=== PATIENT | female | born 1965 | race Caucasian/White ===

== ENCOUNTER 2022-07-12 08:41 | Day surgery (SDC) | payer OTHER, SELFPAY ==
[2022-07-10 13:58] VITALS: BMI 32.0
[2022-07-12 09:28] VITALS: BP 121/84; PULSE 80; RESP 18; TEMP 36.2; O2SAT 98
[2022-07-12 09:32] LABS: OR HCG Qualitative Urine Negative (Negative)
[2022-07-12] MEDS: sodium chloride 0.9% 1,000 ML 30 ML IV (09:34)
--- NOTE | 2022-07-12 09:45 | W.PM.OPSFHP ---
Same Day Surgery H&P Indication for Procedure/HPI DATE OF PROCEDURE: July 12, 2022 CHIEF COMPLAINT/INDICATIONFOR SURGICAL PROCEDURE: Change in bowel habit PREOP DIAGNOSIS: Change in bowel habits PLANNED PROCEDURE: Operation Date: 07/12/22 10:30 Proposed Procedures p Colonoscopy 33122,R19.4(Not Applicable) - Modesto Mccarthy MD 05/02/2022 This is a pleasant 56 years old female patient well-known to me prior to 4 years as I did perform gallbladder surgery and a colonoscopy afterwards that showed at that time diverticulosis.? Patient reports that recently he has started to have alternating bowel habits between diarrhea and constipation.? Denies any bleeding per rectum or history of colon cancer. 07/12/2022 Patient comes today for planned colonoscopy due to change in bowel habits ROS All systems have been reviewed negative except as for the above or per problem list. Medications/Allergies* Home Medications Medication Instructions Recorded Confirmed Type multivitamin (Daily Multi-Vitamin) 1 tab PO DAILY 05/02/22 07/10/22 History ibuprofen 400 mg tablet 400 mg PO Q6H PRN Pain 07/12/22 07/12/22 History Allergies/Adverse Reactions Allergy/AdvReac Type Severity Reaction Status Date / Time tomato Allergy Mild ALGY-Swell Verified 05/05/22 08:42 Lip/Tongue/Throat Penicillins Allergy ALGY-Rash Verified 05/05/22 08:42 Current Medications: Generic Name Dose Route Start Last Admin Trade Name Freq PRN Reason Stop Dose Admin Sodium Chloride 1,000 mls @ 30 mls/hr 07/12/22 07:45 07/12/22 09:34 Sodium Chloride 0.9% IV 30 mls/hr .Q24H COLLIN Administration Pertinent History/Comorbid Conditions* Family History (Updated 05/02/22 @ 09:57 by Bebe Landeros LPN) Chronic kidney disease (CKD) Mother Lung disease Mother Father Hypertension Father Denies family history of Diabetes Dementia Cancer Stroke Social History Smoking and tobacco status: former smoker Pertinent Exam Findings alert, oriented x 3, regular rate & rhythm and procedure specific exam findings (Abdominal exam nontender nondistended soft) Recommendations Surgery/Procedure today (Colonoscopy with possible biopsy) Coding Level of Care Code Acute Bilingual Hr Generalist for Dwight Gonzales
[2022-07-12 11:05] VITALS: BP 118/78; PULSE 97; RESP 18; TEMP 36.2; O2SAT 96
[2022-07-12 11:16] VITALS: BP 116/77; PULSE 76; RESP 16; O2SAT 99
--- NOTE | 2022-07-12 13:30 | ANES.PREANE2 ---
Pre-Anesthetic Assessment Height/Weight: Height 1.57 m Weight 79.379 kg Temp Pulse Resp BP Pulse Ox O2 Del Method 97.1 F L 76 16 116/77 99 07/12/22 11:05 07/12/22 11:16 07/12/22 11:16 07/12/22 11:16 07/12/22 11:16 07/12/22 11:16 Preop Diagnosis: Change in bowel habits Operation Date: 07/12/22 10:30 Proposed Procedures p Colonoscopy 77100,R19.4(Not Applicable) - Modesto Mccarthy MD Familial anesthetic complications: none Was Beta Eric taken within 24 hours: N/A Was Clonidine taken within 24 hours: N/A Last intake: Intake Last Liquid Date 07/11/22 Last Liquid Time 19:00 Last Solid Date 07/10/22 Last Solid Time 19:00 Social No alcohol and No tobacco Exam alert, oriented x 3, clear to auscultation bilaterally and regular rate & rhythm Airway Submandibular: within normal limits Cervical ROM: within normal limits Mallampati: Class II GI diverticular dz Anesthetic Plan ASA status: 2 Anesthesia: MAC Medications/Allergies Home Medications Medication Instructions Recorded Confirmed Last Taken Type mupirocin 2 % topical ointment 1 applic topical BID #15 grams 09/08/20 07/10/22 07/11/22 Rx sulfamethoxazole 800 1 tab PO BID 7 days #14 tabs 09/08/20 07/10/22 07/11/22 Rx mg-trimethoprim 160 mg tablet (Bactrim DS) multivitamin (Daily Multi-Vitamin) 1 tab PO DAILY 05/02/22 07/10/22 07/11/22 History ibuprofen 400 mg tablet 400 mg PO Q6H PRN Pain 07/12/22 07/12/22 06/28/22 History Allergies Allergy/AdvReac Type Severity Reaction Status Date / Time tomato Allergy Mild ALGY-Swell Verified 05/05/22 08:42 Lip/Tongue/Throat Penicillins Allergy ALGY-Rash Verified 05/05/22 08:42 PFSH Anesthesia Family History Mother Chronic kidney disease (CKD) Lung disease Father Hypertension Lung disease Denies family history of Diabetes Dementia Cancer Stroke Social History Smoking and tobacco status: former smoker Data Anesthesia Cardiac Studies: No Data to Display
--- NOTE | 2022-07-12 13:32 | ANE.PACU2 ---
Inpatient post-anesthesia follow up: Airway intact: Yes Vital signs: Temperature 97.1 F Pulse Rate 76 Respiratory Rate 16 Blood Pressure 116/77 Pulse Oximetry 99 Oxygen Delivery Me thod Room Air Oxygen Flow Rate Fraction of Inspir ed Oxygen Hydration adequate: Yes Nausea and vomiting: No Pain level: 1 Mental status: Baseline
== END 2022-07-12 11:28 | disposition home or self-care (01) ==
PROVIDERS: Anesthesiology; PCP Family Medicine; Visit Provider Surgery
PROC: 0DJD8ZZ Inspection of Lower Intestinal Tract, Via Natural or Artificial Opening Endoscopic (ICD-10-PCS; CPT 45378; principal; 2022-07-12 10:30)
DX: R19.4 Change in bowel habit (principal); K57.30 Diverticulosis of large intestine without perforation or abscess without bleeding; Z87.891 Personal history of nicotine dependence; Z88.0 Allergy status to penicillin
CPT/HCPCS: 45378; 81025; 84703; J7030